=== PATIENT | female | born 1970 | race Two or more races ===

== ENCOUNTER 2021-06-04 07:34 | Emergency (ER) | payer OTHER ==
[~2021-06-04] VITALS: Ht 160 cm; Wt 95.3 kg
[2021-06-04] MEDS ORDERED: SYNTHROID137 MCG PO (07:50)
[2021-06-04] MEDS ORDERED: NORVASC5 MG PO (07:50)
[2021-06-04] MEDS ORDERED: HYDROCHLOROTH12.5 MG PO (07:50)
[2021-06-04] MEDS ORDERED: COZAAR100 MG PO (07:50)
[2021-06-04] MEDS ORDERED: CELEBREX200MG PO (10:59)
== END 2021-06-04 11:08 | disposition home or self-care (01) ==
LOC: ER 07:34
DX: S93.611A Sprain of tarsal ligament of right foot, initial encounter (principal); S63.268A Dislocation of metacarpophalangeal joint of other finger, initial encounter; S93.524A Sprain of metatarsophalangeal joint of right lesser toe(s), initial encounter; W10.8XXA Fall (on) (from) other stairs and steps, initial encounter; Y93.89 Activity, other specified; Y92.018 Other place in single-family (private) house as the place of occurrence of the external cause; Y99.8 Other external cause status